=== PATIENT | female | born 1965 | race Caucasian/White ===

== ENCOUNTER 2018-08-18 11:36 | Emergency (ER) | payer SELFPAY ==
[~2018-08-18] VITALS: Ht 154.9 cm; Wt 127.0 kg
[2018-08-18] MEDS ORDERED: HYDROCODONE/APAP 10MG-325MG TAB PO ONE (13:00)
[2018-08-18] MEDS ORDERED: ONDANSETRON HCL 4 MG ORAL DISINTEGRATING TAB PO ONE (13:00)
--- NOTE | 2018-08-18 15:30 | Diagnostic Imaging Report ---
HAND 3+ VIEWS LEFT - 3 views HISTORY: Pain. Fall. Left hand injury. COMPARISON: None available. FINDINGS: Bones: Intra-articular distal radial comminuted fracture. Osseous alignment is within normal limits. Joints: The joint spaces are well-maintained. Soft tissues: Diffuse soft tissue swelling. Soft tissue swelling especially along the radial aspect extending to the first and second digits. IMPRESSION: Intra-articular distal radial fracture. Signed by: Dr. Joe Warren M.D. on 08/18/2018 3:27 PM
--- NOTE | 2018-08-18 15:40 | Diagnostic Imaging Report ---
Exam: Left wrist, 3 views, left forearm, 2 views History: Fall Comparison: Left hand radiographs same day Findings: There is an acute, comminuted intra-articular fracture of the distal radius with mild dorsal angulation. The scaphoid is intact. Appropriate alignment between the distal radius, lunate, and capitate is maintained on the lateral wrist radiographs. The proximal radius and ulna are intact. Soft tissue swelling about the wrist. Impression: Acute, comminuted slightly angulated intra-articular distal radial fracture with overlying soft tissue swelling. Signed by: Dr. Merlin Keys M.D. on 08/18/2018 3:36 PM
== END 2018-08-18 16:19 | disposition home or self-care (01) ==
LOC: ER 11:36
DX: S52.572A Other intraarticular fracture of lower end of left radius, initial encounter for closed fracture (principal); W01.0XXA Fall on same level from slipping, tripping and stumbling without subsequent striking against object, initial encounter; Y93.01 Activity, walking, marching and hiking; Y92.008 Other place in unspecified non-institutional (private) residence as the place of occurrence of the external cause
CPT/HCPCS: 99284